=== PATIENT | female | born 1975 ===

== ENCOUNTER 2023-12-28 06:11 | Day surgery (SDC) | payer OTHER ==
[2023-12-28] MEDS ORDERED: CEFAZOLIN SODIUM 1,000 MG VIAL ONE (06:57)
[2023-12-28] MEDS ORDERED: POVIDONE-IODINE 118 ML BOTT TOP ONE ×2 (07:08→07:30)
[2023-12-28] MEDS ORDERED: GENTAMICIN SULFATE 40 MG/ML VIAL ONE (07:08)
[2023-12-28] MEDS ORDERED: CEFAZOLIN SODIUM 1,000 MG VIAL IV ONE (07:30)
[2023-12-28] MEDS ORDERED: LIDOCAINE HCL/EPINEPHRINE 10MG/ML 1% 50ML IJ ONE ×2 (08:10→08:45)
[2023-12-28] MEDS ORDERED: GENTAMICIN SULFATE 40 MG/ML VIAL IR ONE (08:45)
[2023-12-28] MEDS ORDERED: MACROBID 100 M100 MG PO (08:51)
[2023-12-28] MEDS ORDERED: TRAM1TAB98 PO (08:52)
== END 2023-12-28 12:40 | disposition home or self-care (01) ==
LOC: CIR.AMB 06:11
PROVIDERS: ATTEND Obstetrics & Gynecology Gynecology
DX: N39.3 Stress incontinence (female) (male) (principal); Z20.822 Contact with and (suspected) exposure to COVID-19
CPT/HCPCS: 57288; C1771